=== PATIENT | male | born 1955 | race Caucasian/White ===

== ENCOUNTER 2019-03-05 00:42 | Emergency (ER) | payer OTHER ==
--- OUTSIDE RECORDS SUMMARY | 2019-03-05 00:45 | XMS REPORT ---
:1955 [facility] Address [address] [place] [address] Dr. [address]. [address] [place] [address] Care Team Providers Name Role Phone DR SUSIE CHARLES Unavailable Unavailable Problems This patient has no known problems. Allergies, Adverse Reactions, Alerts This patient has no known allergies or adverse reactions. Medications This patient has no known medications. Encounters Start End Encounter Admission Attending Care Care Encounter Date/Time Date/Time Type Type Clinicians Facility Department ID 2017-08-31 2017-08-31 Outpatient C ESE CHARLES [facility] [id number] 04:47:00 08:40:00 SUSIE Results Test Description Test Time Test Comments Text Results Atomic Results Result Comments GLUCOMETER GLUCOSE- LAB USE ONLY 2017-08-31 07:31:00 Test Item Value Reference Range Comments GLUCOMETER (test code=GMG) 145 mg/dL 70-100 Meter ID: [id number]: [id number] MALINDA MICHELLE GLUCOMETER GLUCOSE- LAB USE [id number] 07:31:00 Test Item Value Reference Range Comments GLUCOMETER (test code=GMG) 142 mg/dL 70-100 Meter ID: [id number]: [id number] HELENE PRASAD
[2019-03-05] MEDS ORDERED: HYDROMORPHONE HCL 2 MG/ML inj ONE (01:04)
[2019-03-05] MEDS ORDERED: DIAZEPAM 10 MG/2 ML INJ SYRINGE ONE (01:47)
[2019-03-05] MEDS ORDERED: NA CHLORIDE 0.9% 100 ML IV ONE (01:48)
[2019-03-05] MEDS ORDERED: HYDROMORPHONE HCL 1 MG/ML INJ ONE (01:54)
--- NOTE | 2019-03-05 02:08 | EDPHYS ---
Physician Documentation [facility] Name: Wong Campuzano Age: 63 yrs Sex: Male : 1955 Arrival Date: 03/05/2019 Time: 00:43 Bed 2 Private MD: ED Physician Monty Hoffman HPI: 03/05 01:19 This 63 yrs old Male presents to ER via EMS with complaints of Back Pain. gs Historical: - Allergies: 00:48 No Known Allergies; lp1 - Home Meds: 00:48 candesartan-hydrochlorothiazid 32-25 mg oral tab 1 tab once daily [Active]; metformin lp1 500 mg Oral tr24 1 tab once daily [Active]; metoprolol succinate 50 mg Oral Tb24 1 tab once daily [Active]; Trintellix 20 mg oral tab 1 tab once daily [Active]; pravastatin 20 mg oral tab once daily [Active]; Tylenol-Codeine #4 300-60 mg Oral tab 1 tab every 4 hours [Active]; - PMHx: 00:48 chronic back pain; Diabetes - NIDDM; fall- broken ribs 03/17/17; Hyperlipidemia; lp1 Hypertension; - PSHx: 00:48 Spinal surgery; Cholecystectomy; lp1 - Immunization history:: Adult Immunizations up to date. - Social history:: Smoking status: Patient/guardian denies using tobacco. - Ebola Screening: : No symptoms or risks identified at this time. Vital Signs: 00:45 BP 171 / 102; Pulse 65; Resp 18; Temp 98.5(O); Pulse Ox 97% on R/A; Weight 104.33 kg lp1 (R); Height 6 ft. 0 in. (182.88 cm); Pain 10/10; 00:51 BP 150 / 99; Pulse 68; Resp 14; Temp 98.5; Pulse Ox 97% on R/A; Pain 10/10; ak1 01:56 BP 149 / 85; Pulse 56; Resp 17; Pulse Ox 94% on R/A; Pain 5/10; tl1 00:45 Body Mass Index 31.19 (104.33 kg, 182.88 cm) lp1 MDM: 01:00 Patient medically screened. gs Administered Medications: 01:05 Drug: Dilaudid 2 mg Route: IM; Site: left deltoid; tl1 02:25 Follow up: Response: No adverse reaction; Marked relief of symptoms; Pain is decreased; tl1 RASS: Alert and Calm (0) 01:51 Drug: Dilaudid 1 mg Route: IVP; Infused Over: 2 mins; Site: left hand; tl1 02:25 Follow up: Response: No adverse reaction; No change in condition; Pain is decreased; tl1 RASS: Alert and Calm (0) 01:51 Drug: Valium 2.5 mg Route: IVP; Infused Over: 2 mins; Site: left hand; tl1 02:25 Follow up: Response: No adverse reaction; Marked relief of symptoms; Pain is decreased tl1 Disposition: 03/05/19 02:06 Discharged to Home. Impression: Radiculopathy, lumbar region. - Condition is Stable. - Discharge Instructions: Lumbosacral Radiculopathy, Back Exercises, [id number]. - Prescriptions for Valium 5 mg Oral Tablet - take 1 tablet by ORAL route every 8 hours As needed; 12 tablet. - Medication Reconciliation Form, Thank You Letter, Antibiotic Education, Prescription Opioid Use form. - Follow up: Private Physician; When: 1 - 2 days; Reason: Re-evaluation by your physician. Signatures: Laurence Benjamin RN RN lp1 Maira Travis RN RN tl1 Monty Hoffman MD MD Corrections: (The following items were deleted from the chart) 02:26 02:06 03/05/2019 02:06 Discharged to Home. Impression: Radiculopathy, lumbar region. tl1 Condition is Stable. Forms are Medication Reconciliation Form, Thank You Letter, Antibiotic Education, Prescription Opioid Use. Follow up: Private Physician; When: 1 - 2 days; Reason: Re-evaluation by your physician. gs
--- NOTE | 2019-03-05 02:08 | ER ---
Nurse's Notes [facility] Name: Wong Campuzano Age: 63 yrs Sex: Male : 1955 Arrival Date: 03/05/2019 Time: 00:43 Bed 2 Private MD: Diagnosis: Radiculopathy, lumbar region Presentation: 03/05 00:44 Presenting complaint: EMS states: Lower back pain that began tonight, severe above lp1 right hip, radiating down right leg; Patient states hx of L2-S1 surgery; Denies any trauma, injury today. Transition of care: patient was not received from another setting of care. Onset of symptoms was March 05, 2019. Risk Assessment: Do you want to hurt yourself or someone else? Patient reports no desire to harm self or others. Initial Sepsis Screen: Does the patient meet any 2 criteria? No. Patient's initial sepsis screen is negative. Does the patient have a suspected source of infection? No. Patient's initial sepsis screen is negative. Care prior to arrival: None. 00:44 Method Of Arrival: EMS: [facility] lp1 00:44 Acuity: PARAM 3 lp1 Historical: - Allergies: 00:48 No Known Allergies; lp1 - Home Meds: 00:48 candesartan-hydrochlorothiazid 32-25 mg oral tab 1 tab once daily [Active]; metformin lp1 500 mg Oral tr24 1 tab once daily [Active]; metoprolol succinate 50 mg Oral Tb24 1 tab once daily [Active]; Trintellix 20 mg oral tab 1 tab once daily [Active]; pravastatin 20 mg oral tab once daily [Active]; Tylenol-Codeine #4 300-60 mg Oral tab 1 tab every 4 hours [Active]; - PMHx: 00:48 chronic back pain; Diabetes - NIDDM; fall- broken ribs 03/17/17; Hyperlipidemia; lp1 Hypertension; - PSHx: 00:48 Spinal surgery; Cholecystectomy; lp1 - Immunization history:: Adult Immunizations up to date. - Social history:: Smoking status: Patient/guardian denies using tobacco. - Ebola Screening: : No symptoms or risks identified at this time. Screenin:48 Abuse screen: Denies threats or abuse. Denies injuries from another. Nutritional lp1 screening: No deficits noted. Tuberculosis screening: No symptoms or risk factors identified. 00:51 Fall Risk None identified. ak1 Assessment: 00:51 General: Appears uncomfortable, well groomed, Behavior is cooperative. Pain: Complains ak1 of pain in right low back. Neuro: Level of Consciousness is awake, alert, obeys commands, Oriented to person, place, time, situation, Leather Repairer are equal bilaterally Moves all extremities. Speech is normal. Cardiovascular: No deficits noted. Respiratory: No deficits noted. GI: No signs and/or symptoms were reported involving the gastrointestinal system. : No signs and/or symptoms were reported regarding the genitourinary system. EENT: No signs and/or symptoms were reported regarding the EENT system. Derm: No signs and/or symptoms reported regarding the dermatologic system. Musculoskeletal: Range of motion: limited in lower back due to pain Reports pain in lumbar area and right low back. 01:28 Reassessment: Dr. Hoffman requested pt be walked down the myers. pt unable to stand. pt ak1 able to sit on side of bed, pt attempted twice to stand to walk with no success. Dr. Hoffman notified. 02:04 Reassessment: Dr. Hoffman reported that pt was able to stand and walk at this time. ak1 Vital Signs: 00:45 BP 171 / 102; Pulse 65; Resp 18; Temp 98.5(O); Pulse Ox 97% on R/A; Weight 104.33 kg lp1 (R); Height 6 ft. 0 in. (182.88 cm); Pain 10/10; 00:51 BP 150 / 99; Pulse 68; Resp 14; Temp 98.5; Pulse Ox 97% on R/A; Pain 10/10; ak1 01:56 BP 149 / 85; Pulse 56; Resp 17; Pulse Ox 94% on R/A; Pain 5/10; tl1 00:45 Body Mass Index 31.19 (104.33 kg, 182.88 cm) lp1 ED Course: 00:43 Patient arrived in ED. ak1 00:45 Triage completed. lp1 00:45 Monty Hoffman MD is Attending Physician. gs 00:46 Arm band placed on left wrist. lp1 00:48 Patient has correct armband on for positive identification. Bed in low position. Call lp1 light in reach. Side rails up X2. Pulse ox on. NIBP on. 00:51 Anushka Pagan, RN is Primary Nurse. ak1 00:53 Inserted saline lock: 20 gauge in left hand, using aseptic technique. ,using aseptic ak1 technique. placed by Maira Brooks RN Blood collected. 02:24 No provider procedures requiring assistance completed. IV discontinued, intact, tl1 bleeding controlled, No redness/swelling at site. Pressure dressing applied. Administered Medications: 01:05 Drug: Dilaudid 2 mg Route: IM; Site: left deltoid; tl1 02:25 Follow up: Response: No adverse reaction; Marked relief of symptoms; Pain is decreased; tl1 RASS: Alert and Calm (0) 01:51 Drug: Dilaudid 1 mg Route: IVP; Infused Over: 2 mins; Site: left hand; tl1 02:25 Follow up: Response: No adverse reaction; No change in condition; Pain is decreased; tl1 RASS: Alert and Calm (0) 01:51 Drug: Valium 2.5 mg Route: IVP; Infused Over: 2 mins; Site: left hand; tl1 02:25 Follow up: Response: No adverse reaction; Marked relief of symptoms; Pain is decreased tl1 Outcome: 02:06 Discharge ordered by . 02:24 Discharged to home via wheelchair. tl1 02:24 Condition: improved 02:24 Discharge instructions given to patient, family, Instructed on discharge instructions, follow up and referral plans. medication usage, Demonstrated understanding of instructions, follow-up care, medications, Prescriptions given X 1. 02:26 Patient left the ED. tl1 Signatures: Laurence Benjamin RN RN 1 Maira Travis RN RN tl1 Anushka Pagan, GEORGE RN ak1 Monty Hoffman MD MD gs
[2019-03-05 07:54] VITALS: TEMP 98.5
[2019-03-05 07:57] VITALS: BP 149/85; O2SAT 94
== END 2019-03-05 02:26 | disposition home or self-care (01) ==
LOC: ER 00:42
DX: M54.16 Radiculopathy, lumbar region (principal); I10 Essential (primary) hypertension; E11.9 Type 2 diabetes mellitus without complications; E78.5 Hyperlipidemia, unspecified
CPT/HCPCS: 96375; 96372; 96374; 99284; J3360; J1170 ×2